=== PATIENT | female | born 1950 | race African-American/Black ===

== ENCOUNTER 2019-10-07 18:16 | Emergency (ER) | payer OTHER ==
[~2019-10-07] VITALS: Ht 177.8 cm; Wt 68.0 kg
[2019-10-07] MEDS ORDERED: SEROQUEL 100 M100 MG PER TUBE (18:31)
[2019-10-07] MEDS ORDERED: QUETIAPINE FUMA50 MG PER TUBE (18:32)
[2019-10-07] MEDS ORDERED: ANTACID325 MG PER TUBE (18:45)
[2019-10-07] MEDS ORDERED: SYNTHROID25 MC1 PER TUBE (18:49)
[2019-10-07] MEDS ORDERED: ACETAMINOPHEN650 M5 PER TUBE (18:50)
[2019-10-07] MEDS ORDERED: ALBUTEROL2.5 MG/31 INH (18:51)
[2019-10-07] MEDS ORDERED: BISACODYL10 MG RECTAL (18:51)
[2019-10-07] MEDS ORDERED: ENOXAPARIN60 MG/0.1 SUBQ (18:54)
[2019-10-07] MEDS ORDERED: ANCEF 1GM1 GM/50 M1 IM (18:54)
[2019-10-07] MEDS ORDERED: FAMOTIDINE 20 M20 MG PER TUBE (18:55)
[2019-10-07] MEDS ORDERED: ROBITUSSIN100 MG/53 PER TUBE (18:57)
[2019-10-07] MEDS ORDERED: METOPROLOL TART25 MG PER TUBE (18:58)
[2019-10-07] MEDS ORDERED: MELATONIN3 M1 PER TUBE (18:58)
[2019-10-07] MEDS ORDERED: ZOFRAN ODT4 MG PER TUBE (18:59)
[2019-10-07] MEDS ORDERED: OXYCODONE HCL5 MG PER TUBE (18:59)
[2019-10-07] MEDS ORDERED: MIRALAX119 GM PER TUBE (19:00)
[2019-10-07] MEDS ORDERED: EFFER-K 20 MEQ20 ME1 PER TUBE (19:01)
[2019-10-07 21:30] VITALS: BP 117/65
== END 2019-10-07 21:31 | disposition home or self-care (01) ==
LOC: ER 18:16
DX: J95.00 Unspecified tracheostomy complication (principal)

== ENCOUNTER → 2020-01-18 08:13 | Emergency (ER) | payer OTHER ==
[~2020-01-18] VITALS: Ht 165.1 cm; Wt 47.6 kg
[~2020-01-18 08:13] MED LIST: ACETAMINOPHEN650 M5 PER TUBE; ALBUTEROL2.5 MG/31 INH; ANCEF 1GM1 GM/50 M1 IM; ANTACID325 MG PER TUBE; BISACODYL10 MG RECTAL; EFFER-K 20 MEQ20 ME1 PER TUBE; ENOXAPARIN60 MG/0.1 SUBQ; FAMOTIDINE 20 M20 MG PER TUBE; MELATONIN3 M1 PER TUBE; METOPROLOL TART25 MG PER TUBE; MIRALAX119 GM PER TUBE; OXYCODONE HCL5 MG PER TUBE; QUETIAPINE FUMA50 MG PER TUBE; ROBITUSSIN100 MG/53 PER TUBE; SEROQUEL 100 M100 MG PER TUBE; SYNTHROID25 MC1 PER TUBE; ZOFRAN ODT4 MG PER TUBE
== END ==
LOC: ER 08:13
DX: I46.9 Cardiac arrest, cause unspecified (principal); Z79.899 Other long term (current) drug therapy; Z86.73 Personal history of transient ischemic attack (TIA), and cerebral infarction without residual deficits